=== PATIENT | female | born 2000 | race African-American/Black ===

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

== ENCOUNTER 2022-11-09 19:17 | Emergency (ER) | payer MEDICAID ==
[~2022-11-09] VITALS: Ht 165.1 cm; Wt 82.0 kg
[2022-11-09] MEDS ORDERED: VISCOUS LIDOCAINE 2% 15 ML UDC MM ONE (20:15)
[2022-11-09] MEDS ORDERED: MAGNESIUM/ALUMINUM HYDROXIDE/SIMETHICONE 30ML UDC PO ONE (20:15)
[2022-11-09] MEDS ORDERED: ONDANSETRON 4MG ODT PO ONE (20:15)
[2022-11-09 21:04] LABS: BASOPHILS % 0.4 % (0.0-2.0); EOSINOPHILS % 0.6 % (0.0-5.0); HEMATOCRIT. 38.7 % (36.0-48.0); HEMOGLOBIN. 12.9 g/dL (12.0-16.0); LYMPHOCYTES % 34.6 % (20.0-50.0); MEAN CORPUSCULAR HEMOGLOBIN 28.5 pg (28.0-32.0); MEAN CORPUSCULAR VOLUME 85.8 fL (81.0-99.0); MONOCYTES % 6.7 % (2.0-8.0); NEUTROPHILS % 57.7 % (40.0-76.0); PLATELET 314 x1000/uL (130-400); RED BLOOD CELL COUNT 4.51 mill/uL (4.2-5.4); RED CELL DISTRIBUTION WIDTH 14.5 % (11.6-14.6)
[2022-11-09 21:12] LABS: CHLORIDE 108 mEq/L (98-107)
[2022-11-09] MEDS ORDERED: ONDA4TAB50 MT (21:22)
[2022-11-09] MEDS ORDERED: MAG355OR21 MT (21:22)
[2022-11-09 21:30] VITALS: BP 113/70
== END 2022-11-09 22:00 | disposition home or self-care (01) ==
LOC: ER 19:17
DX: R11.2 Nausea with vomiting, unspecified (principal); R10.13 Epigastric pain; F12.90 Cannabis use, unspecified, uncomplicated; Z88.0 Allergy status to penicillin
CPT/HCPCS: 36415; 80053; 83690; 85025; 99284; Q0162; Z7610; 99283